=== PATIENT | male | born 1985 | race Caucasian/White ===

== ENCOUNTER 2017-09-16 00:53 | Emergency (ER) | payer BC ==
[~2017-09-16] VITALS: Ht 180.3 cm; Wt 83.9 kg
[~2017-09-16 00:53] MED LIST: IBUP800 PO; OXYACE5T PO; RXOXYACE PO
[2017-09-16] MEDS ORDERED: Norco 5-325 Ta1 EACH PO (03:10)
== END 2017-09-16 03:23 | disposition home or self-care (01) ==
LOC: ER 00:53
DX: S01.511A Laceration without foreign body of lip, initial encounter (principal); F17.200 Nicotine dependence, unspecified, uncomplicated; W01.0XXA Fall on same level from slipping, tripping and stumbling without subsequent striking against object, initial encounter
CPT/HCPCS: 12013; 99283

== ENCOUNTER → 2020-03-06 | Outpatient (CLI) | payer SELFPAY ==
[~2020-03-06] MED LIST changes: +Norco 5-325 Ta1 EACH PO
== END | disposition home or self-care (01) ==
LOC: LAB 20:53 → LAB SHORT 20:53
DX: J36 Peritonsillar abscess (principal)
CPT/HCPCS: 87081

== ENCOUNTER 2023-09-05 11:02 | Emergency (ER) | payer OTHER ==
[~2023-09-05] VITALS: Ht 177.8 cm; Wt 79.4 kg
[2023-09-05 12:00] VITALS: BP 110/70
== END 2023-09-06 15:30 | disposition home or self-care (01) ==
LOC: ER 11:02
DX: T40.2X1A Poisoning by other opioids, accidental (unintentional), initial encounter (principal); F15.90 Other stimulant use, unspecified, uncomplicated
CPT/HCPCS: 99284